=== PATIENT | male | born 1970 | race Caucasian/White ===

== ENCOUNTER 2019-09-14 11:06 | Inpatient (IN) | payer OTHER ==
[2019-09-14 11:38] VITALS: BMI 30.7
--- NOTE | 2019-09-14 12:01 | HP ---
CIWA Score Nausea/Vomitin-Int. Nausea w/Dry Heave Muscle Tremors: 1-None Visible, but [place] Anxiety: 2 Agitation: 1-Slight > Activity Paroxysmal Sweats: 1-Minimal Palms Moist Orientation: 1-Uncertain about Date Tacttile Disturbances: 1-Very Mild Itch/Numbness Auditory Disturbances: 0-None Visual Disturbances: 0-None Headache: 1-Very Mild CIWA-Ar Total Score: 12 - Admission Criteria OASAS Guidelines: Admission for Medically Managed Detox: Requires at least one of the followin. CIWA greater than 12 2. Seizures within the past 24 hours 3. Delirium tremens within the past 24 hours 4. Hallucinations within the past 24 hours 5. Acute intervention needed for co occurring medical disorder 6. Acute intervention needed for co occurring psychiatric disorder 7. Severe withdrawal that cannot be handled at a lower level of care (continued vomiting, continued diarrhea, abnormal vital signs) requiring intravenous medication and/or fluids 8. Admitting History and Physical - Admission Chief Complaint: "I have to stop drinking." History of Present Illness: 49 year old male with history with alcohol dependence and withdrawals. He has attempted detox in the past [facility] 2 weeks ago. However, he went to back to work and then relapsed again right after discharge. He is drinking 2 pints of vodka daily, last drank this morning. He denies any other substances of abuse. He does not smoke ciggarettes. 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 History of Recent Travel: No Admission ROS BHS - HPI Allergies/Adverse Reactions: Allergies Allergy/AdvReac Type Severity Reaction Status Date / Time No Known Allergies Allergy Verified 09/14/19 11:33 Exam Limitations: No Limitations - Ebola screening Have you traveled outside of the country in the last 21 days: No Have you had contact with anyone from an Ebola affected area: No Have you been sick,other than usual withdrawal symptoms: No Do you have a fever: No - Review of Systems Constitutional: Chills, Diaphoresis EENT: reports: No Symptoms Reported Respiratory: reports: No Symptoms reported Cardiac: reports: No Symptoms Reported GI: reports: Nausea, Vomiting, Abdominal cramping : reports: No Symptoms Reported Musculoskeletal: reports: No Symptoms Reported Integumentary: reports: No Symptoms Reported Neuro: reports: No Symptoms reported Endocrine: reports: No Symptoms Reported Hematology: reports: No Symptoms Reported Psychiatric: reports: Judgement Intact, Mood/Affect Appropiate, Orientated x3 Other Systems: Reviewed and Negative Patient History - Patient Medical History Hx Anemia: No Hx Asthma: No Hx Chronic Obstructive Pulmonary Disease (COPD): No Hx Cancer: No Hx Cardiac Disorders: No Hx Congestive Heart Failure: No Hx Hypertension: No Hx Hypercholesterolemia: No Hx Pacemaker: No HX Cerebrovascular Accident: No Hx Seizures: No Hx Dementia: No Hx Diabetes: No Hx Gastrointestinal Disorders: No Hx Liver Disease: No Hx Genitourinary Disorders: No Hx Sexually Transmitted Disorders: No Hx Renal Disease (ESRD): No Hx Thyroid Disease: No Hx Human Immunodeficiency Virus (HIV): No Hx Hepatitis C: No Hx Depression: No Hx Suicide Attempt: No Hx Bipolar Disorder: No Hx Schizophrenia: No - Patient Surgical History Past Surgical History: No - PPD History Previous Implant?: Yes Documented Results: Negative w/o proof Implanted On Prior R Admission?: No Date: 08/26/19 Results: negative PPD to be Administered?: Yes - Smoking Cessation Smoking history: Never smoked Have you smoked in the past 12 months: No Hx Chewing Tobacco Use: No Initiated information on smoking cessation: No - Substances abused Alcohol Substance route: Oral Frequency: Daily Amount used: 2 PINTS OF VODKA Age of first use: 16 Date of last use: 09/14/19 Admission Physical Exam BHS - Vital Signs Vital Signs: Vital Signs - 24 hr 09/14/19 11:29 Temperature 97.9 F Pulse Rate 96 H Respiratory 17 Rate Blood Pressure 141/88 - Physical General Appearance: Yes: Nourished, Moderate Distress, Irritable, Sweating, Anxious HEENTM: Yes: EOMI, Hearing grossly Normal, Normal ENT Inspection, Normocephalic , Normal Voice, ИРИНА, Pharynx Normal, Tm's normal Respiratory: Yes: Chest Non-Tender, Lungs Clear, Normal Breath Sounds Neck: Yes: No masses,lesions,Nodules, Supple, Trachea in good position Breast: Yes: Within Normal Limits Cardiology: Yes: Regular Rhythm, Regular Rate, S1, S2 Abdominal: Yes: Guarding, Tenderness, Other Genitourinary: Yes: Within Normal Limits Back: Yes: Normal Inspection Musculoskeletal: Yes: full range of Motion, Gait Steady, Pelvis Stable Extremities: Yes: Normal Capillary Refill, Normal Inspection Neurological: Yes: river guide II-XII NML intact, Fully Oriented, Alert, Motor Strength 5/5, Normal Mood/Affect, Normal Response Integumentary: Yes: Normal Color, Warm Lymphatic: Yes: Within Normal Limits - Diagnostic (1) Pancreatitis, alcoholic, acute Current Visit: Yes Status: Acute Screened but not Admitted - Documentation of Visit Screened but not Admitted: No Breathalyzer - Breathalyzer Breathalyzer: 0.041 Inpatient Rehab Admission - Rehab Decision to Admit Inpatient rehab admission?: No
[2019-09-14] MEDS ORDERED: DICYCLOMINE HCL 10 MG CAPSULE PO PRN (23:28)
[2019-09-14] MEDS ORDERED: MAG HYDROX/AL HYDROX/SIMETH 30 ML UNIT-DOSE CUP PO PRN (23:28)
[2019-09-14] MEDS ORDERED: IBUPROFEN 400 MG TABLET (FP) PO PRN (23:28)
[2019-09-14] MEDS ORDERED: MELATONIN 5 MG TABLETS PO PRN (23:28)
[2019-09-14] MEDS ORDERED: MAGNESIUM HYDROX 2400MG/30ML ORAL SUSPENSION 30 ML CUP PO PRN (23:28)
[2019-09-14] MEDS ORDERED: MAGNESIUM CITRATE 300 ML BOTTLE PO PRN (23:28)
[2019-09-14] MEDS ORDERED: hydrOXYzine PAMOATE 25 MG CAPSULE (FP) PO PRN (23:28)
[2019-09-14] MEDS ORDERED: P-EPHED 60MG/TRIPROLIDI 2.5MG TABLET PO PRN (23:28)
[2019-09-14] MEDS ORDERED: guaiFENesin 200 MG/10 ML 10 ML UNIT-DOSE CUPS PO PRN (23:28)
[2019-09-14] MEDS ORDERED: ONDANSETRON *ODT* 4 MG TABLET SL PRN (23:28)
[2019-09-14] MEDS ORDERED: ACETAMINOPHEN 325 MG TABLET (FP) PO PRN ×2 (23:28)
[2019-09-14] MEDS ORDERED: MENTHOL/PHENOL 1 EACH UD MM PRN (23:28)
[2019-09-14] MEDS ORDERED: METHOCARBAMOL 500 MG TABLET PO PRN (23:28)
[2019-09-14] MEDS ORDERED: LORazepam 1 MG TABLET PO PRN (23:28)
--- NOTE | 2019-09-14 23:28 | PN ---
[facility] CIWA - CIWA Score Nausea/Vomitin Muscle Tremors: 1-None Visible, but [place] Anxiety: 1-Mildly Anxious Agitation: 1-Slight > Activity Paroxysmal Sweats: 3 Orientation: 1-Uncertain about Date Tacttile Disturbances: 0-None Auditory Disturbances: 0-None Visual Disturbances: 0-None Headache: 0-None Present CIWA-Ar Total Score: 10 [facility] Progress Note (SOAP) Subjective: HERE FOR ALCOHOL DETOX. RETURNS FROM FROM [facility] AFTER BEING MEDICALLY CLEARED FRO ABD PAIN. C/O WITHDRAWAL SX'S. DENIES C.P., SOB, DIZZINESS Objective: 09/14/19 23:25 A/O X2 CONFUSED ABOUT DATE VS 151/91 [id number] [id number] [facility] NOTE-Medical Decision Making - Medical Decision Making 09/14/19 14:51 Ivan Sen is a 49yo man with a PMH of alcohol abuse who was sent from detox for evaluation of abdominal pain. Mr Sen reports that he has had lower abdominal pain with frequent watery diarrhea "as long as he can remember. " He is unable to clarify how long the diarrhea and pain have been present though does say that it occurs every time he drinks. He says that the stool is brown, non-bloody, and watery. He is unsure how many episodes per day but probably up to 10. He denies any nausea or vomiting along with the pain. He denies dysuria, hematuria, fever/chills, PO intolerance, or other recent symptoms. - LLQ TTP on exam. No CVA tenderness. Most likely colitis v diverticulitis - CBC, CMP, mag, UA, UCx, CT abd/pelvis w/ contrast for evaluation. CXR, EKG for possible admission 09/14/19 18:46 - Labs without concerning abnormalities - CT not yet completed. Pt taken to CT 09/14/19 19:55 - CT completed, reviewed in ED. No significant abnormalities appreciated. Read pending - Pt observed walking in ED without difficulty or apparent discomfort. Has been sleeping comfortably in ED 09/14/19 20:23 - CT abd/pelvis negative - Given negative workup, pt well appearing, will d/c back to detox Discharge - Discharge Information Problems reviewed: Yes Clinical Impression/Diagnosis: Abdominal pain in male Condition: Stable Disposition: HOME - Admission No - Follow up/Referral - Patient Discharge Instructions Patient Printed Discharge Instructions: DI for Abdominal Pain-Adult Additional Instructions: Discharge Instructions: You were seen in the emergency department for abdominal pain and diarrhea. Your blood tests and CT scan were all negative. Please continue to take all of your regular medications as prescribed. Seek immediate medical attention for any worsening symptoms, severe pain, inability to eat, dehydration, or any other medical emergency. - Post Discharge Activity 09/14/19 23:32 Assessment: 09/14/19 23:27 [id number] Plan: ADMIT TO DETOX START [facility]
[2019-09-15] MEDS: LORazepam 2 MG TABLET PO SCH ×5 (01:20→22:18)
[2019-09-15] MEDS: PRENATAL VITAMINS W/ FOLIC ACID TABLET (FP) PO SCH (10:10)
--- NOTE | 2019-09-15 10:48 | PN ---
S CIWA - CIWA Score Nausea/Vomitin-No Nausea/No Vomiting Muscle Tremors: 3 Anxiety: 3 Agitation: 2 Paroxysmal Sweats: 2 Orientation: 0-Oriented Tacttile Disturbances: 1-Very Mild Itch/Numbness Auditory Disturbances: 0-None Visual Disturbances: 0-None Headache: 2-Mild CIWA-Ar Total Score: 13 [facility] Progress Note (SOAP) Subjective: 49 years old male admitted on 09/14/19 for alcohol withdrawal sx management treated with ativan detox regimen patient had severe abdominal pain transferred to ER for diarrhea and abdominal pain medically cleared return to chemical dependent facility continue alcohol detox patient ate breakfast resting on bed feeling tired moist oral mucosa good skin turgur strong recommend the patient increase oral fluid discontinue citric and MOM Objective: 09/15/19 10:53 Vital Signs Temperature 97.4 F L 09/15/19 09:50 Pulse Rate 106 H 09/15/19 09:50 Respiratory Rate 18 09/15/19 09:50 Blood Pressure 118/77 09/15/19 09:50 O2 Sat by Pulse Oximetry (%) 09/15/19 10:54 lab see 09/14/19 ER report Assessment: 09/15/19 10:54 alcohol withdrawal Plan: ativan regimen
[2019-09-15] MEDS: FAMOTIDINE 20 MG TABLET PO SCH ×2 (12:14→22:19)
[2019-09-15 15:50] LABS: EPI CELLS 0.8 /HPF (0-5/HPF); HYALINE CASTS 2 /lpf (0-8); PH,URINE 6.5 (5.0-8.0); URINE APPEARANCE CLEAR; URINE BACTERIA 6.5 /hpf (NEGATIVE); URINE BILIRUBIN NEGATIVE (NEGATIVE); URINE COLOR YELLOW; URINE GLUCOSE (UA) NEGATIVE (NEGATIVE); URINE KETONE NEGATIVE (NEGATIVE); URINE LEUK ESTERASE NEGATIVE (NEGATIVE); URINE NITRITE NEGATIVE (NEGATIVE); URINE PROTEIN 1+ (NEGATIVE); URINE RBC 2 /hpf (0-4); URINE UROBILINOGEN 0.2 mg/dL (0.2-1.0); URINE WBC 0 /hpf (0-5)
[2019-09-15] MEDS: THIAMINE HCL 100 MG TABLET (FP) PO SCH (22:19)
[2019-09-16] MEDS: LORazepam 1 MG TABLET PO SCH ×4 (05:34→22:34)
[2019-09-16] MEDS: PRENATAL VITAMINS W/ FOLIC ACID TABLET (FP) PO SCH (10:06)
[2019-09-16] MEDS: FAMOTIDINE 20 MG TABLET PO SCH ×2 (10:06→22:33)
[2019-09-16] MEDS: BISMUTH SUBSALICYLATE 524 MG/30 ML UD PO PRN ×2 (10:08→17:42)
--- NOTE | 2019-09-16 11:53 | PN ---
[facility] CIWA - CIWA Score Nausea/Vomitin-Mild Nausea/No Vomiting Muscle Tremors: 3 Anxiety: 3 Agitation: 1-Slight > Activity Paroxysmal Sweats: 2 Orientation: 0-Oriented Tacttile Disturbances: 0-None Auditory Disturbances: 0-None Visual Disturbances: 0-None Headache: 0-None Present CIWA-Ar Total Score: 10 S Progress Note (SOAP) Subjective: 49 years old male admitted on 09/14/19 for alcohol withdrawal sx management treated with ativan detox regimen ate breakfast and lunch tolerated food and fluid well feeling ok today resting on bed at this time but will attend meetings and groups Objective: 09/16/19 11:54 Vital Signs Temperature 97.5 F L 09/16/19 09:15 Pulse Rate 72 09/16/19 09:15 Respiratory Rate 18 09/16/19 09:15 Blood Pressure 108/62 09/16/19 09:15 O2 Sat by Pulse Oximetry (%) Laboratory Last Values Urine Color Yellow 09/15/19 13:30 Urine Appearance Clear 09/15/19 13:30 Urine pH 6.5 (5.0-8.0) 09/15/19 13:30 Ur Specific [place] 1.038 (1.010-1.035) H 09/15/19 13:30 Urine Protein 1+ (NEGATIVE) H 09/15/19 13:30 Urine Glucose (UA) Negative (NEGATIVE) 09/15/19 13:30 Urine Ketones Negative (NEGATIVE) 09/15/19 13:30 Urine Blood Negative (NEGATIVE) 09/15/19 13:30 Urine Nitrite Negative (NEGATIVE) 09/15/19 13:30 Urine Bilirubin Negative (NEGATIVE) 09/15/19 13:30 Urine Urobilinogen 0.2 mg/dL (0.2-1.0) 09/15/19 13:30 Ur Leukocyte Esterase Negative (NEGATIVE) 09/15/19 13:30 Urine WBC (Auto) 0 /hpf (0-5) 09/15/19 13:30 Urine RBC (Auto) 2 /hpf (0-4) 09/15/19 13:30 Urine Casts (Auto) 2 /lpf (0-8) 09/15/19 13:30 U Epithel Cells (Auto) 0.8 /HPF (0-5/HPF) 09/15/19 13:30 Urine Bacteria (Auto) 6.5 /hpf (NEGATIVE) 09/15/19 13:30 RPR Titer Nonreactive (NONREACTIVE) 09/15/19 06:15 lab noted Assessment: 09/16/19 11:55 alcohol withdrawal Plan: ativan regimen
[2019-09-16] MEDS: THIAMINE HCL 100 MG TABLET (FP) PO SCH (22:33)
[2019-09-17] MEDS ORDERED: LORazepam 0.5 MG TABLET PO PRN
[2019-09-17] MEDS: LORazepam 0.5 MG TABLET PO SCH ×4 (05:45→22:29)
[2019-09-17] MEDS ORDERED: LOPERAMIDE HCL 2 MG CAPSULE PO ONE ×3 (09:13→16:00)
[2019-09-17] MEDS: PRENATAL VITAMINS W/ FOLIC ACID TABLET (FP) PO SCH (10:04)
[2019-09-17] MEDS: FAMOTIDINE 20 MG TABLET PO SCH ×2 (10:04→22:28)
--- NOTE | 2019-09-17 10:48 | PN ---
S CIWA - CIWA Score Nausea/Vomitin-No Nausea/No Vomiting Muscle Tremors: 2 Anxiety: 2 Agitation: 1-Slight > Activity Paroxysmal Sweats: 1-Minimal Palms Moist Orientation: 0-Oriented Tacttile Disturbances: 0-None Auditory Disturbances: 0-None Visual Disturbances: 0-None Headache: 0-None Present CIWA-Ar Total Score: 6 [facility] Progress Note (SOAP) Subjective: 49 years old male admitted on 09/16/19 for alcohol withdrawal sx management treating with ativan detox regimen c/o loose stool no vomiting no bleed noted imodium 4 mg po x 1 now and 4mg po x 1 round 6pm today lomitile prn at 2200 if needed Objective: 09/17/19 10:50 Vital Signs Temperature 97.1 F L 09/17/19 09:42 Pulse Rate 76 09/17/19 09:42 Respiratory Rate 18 09/17/19 09:42 Blood Pressure 144/90 09/17/19 09:42 O2 Sat by Pulse Oximetry (%) Laboratory Last Values Urine Color Yellow 09/15/19 13:30 Urine Appearance Clear 09/15/19 13:30 Urine pH 6.5 (5.0-8.0) 09/15/19 13:30 Ur Specific [place] 1.038 (1.010-1.035) H 09/15/19 13:30 Urine Protein 1+ (NEGATIVE) H 09/15/19 13:30 Urine Glucose (UA) Negative (NEGATIVE) 09/15/19 13:30 Urine Ketones Negative (NEGATIVE) 09/15/19 13:30 Urine Blood Negative (NEGATIVE) 09/15/19 13:30 Urine Nitrite Negative (NEGATIVE) 09/15/19 13:30 Urine Bilirubin Negative (NEGATIVE) 09/15/19 13:30 Urine Urobilinogen 0.2 mg/dL (0.2-1.0) 09/15/19 13:30 Ur Leukocyte Esterase Negative (NEGATIVE) 09/15/19 13:30 Urine WBC (Auto) 0 /hpf (0-5) 09/15/19 13:30 Urine RBC (Auto) 2 /hpf (0-4) 09/15/19 13:30 Urine Casts (Auto) 2 /lpf (0-8) 09/15/19 13:30 U Epithel Cells (Auto) 0.8 /HPF (0-5/HPF) 09/15/19 13:30 Urine Bacteria (Auto) 6.5 /hpf (NEGATIVE) 09/15/19 13:30 RPR Titer Nonreactive (NONREACTIVE) 09/15/19 06:15 lab noted 09/17/19 10:51 encourage hand washing Assessment: 09/17/19 10:51 alcohol withdrawal Plan: ativan regiment
[2019-09-17] MEDS ORDERED: DIPHENOXYLATE 2.5/ATROPINE.025 1 COMBO TABLET PO PRN (22:00)
[2019-09-17] MEDS: THIAMINE HCL 100 MG TABLET (FP) PO SCH (22:28)
[2019-09-18] MEDS ORDERED: LORazepam 0.5 MG TABLET PO ONE (05:00)
[2019-09-18 09:13] VITALS: BP 138/83; PULSE 95; TEMP 97.6
--- NOTE | 2019-09-18 09:24 | PN ---
[facility] CIWA - CIWA Score Nausea/Vomitin-No Nausea/No Vomiting Muscle Tremors: 1-None Visible, but [place] Anxiety: 1-Mildly Anxious Agitation: 0-Normal Activity Paroxysmal Sweats: No Perspiration Orientation: 0-Oriented Tacttile Disturbances: 0-None Auditory Disturbances: 0-None Visual Disturbances: 0-None Headache: 0-None Present CIWA-Ar Total Score: 2 [facility] Progress Note (SOAP) Subjective: alert,anxious Objective: 09/18/19 09:23 Vital Signs Temperature 97.6 F 09/18/19 09:12 Pulse Rate 95 H 09/18/19 09:12 Respiratory Rate 18 09/18/19 09:12 Blood Pressure 138/83 09/18/19 09:12 O2 Sat by Pulse Oximetry (%) Assessment: 09/18/19 09:23 detox completed,no withdrawal symptom Plan: discharge today,follow up with after care program as arrangement
--- NOTE | 2019-09-18 09:30 | DS ---
[facility] Detox Discharge Summary Admission Date: 09/14/19 Discharge Date: 09/18/19 - History Present History: Alcohol Dependence Additional Comments: stable for discharge,follow up with after care program as arrangement Pertinent Past History: pancreatitis - Physical Exam Results Vital Signs: Vital Signs Temperature 97.6 F 09/18/19 09:12 Pulse Rate 95 H 09/18/19 09:12 Respiratory Rate 18 09/18/19 09:12 Blood Pressure 138/83 09/18/19 09:12 O2 Sat by Pulse Oximetry (%) Pertinent Admission Physical Exam Findings: withdrawal signs and symptom Laboratory Last Values Urine Color Yellow 09/15/19 13:30 Urine Appearance Clear 09/15/19 13:30 Urine pH 6.5 (5.0-8.0) 09/15/19 13:30 Ur Specific [place] 1.038 (1.010-1.035) H 09/15/19 13:30 Urine Protein 1+ (NEGATIVE) H 09/15/19 13:30 Urine Glucose (UA) Negative (NEGATIVE) 09/15/19 13:30 Urine Ketones Negative (NEGATIVE) 09/15/19 13:30 Urine Blood Negative (NEGATIVE) 09/15/19 13:30 Urine Nitrite Negative (NEGATIVE) 09/15/19 13:30 Urine Bilirubin Negative (NEGATIVE) 09/15/19 13:30 Urine Urobilinogen 0.2 mg/dL (0.2-1.0) 09/15/19 13:30 Ur Leukocyte Esterase Negative (NEGATIVE) 09/15/19 13:30 Urine WBC (Auto) 0 /hpf (0-5) 09/15/19 13:30 Urine RBC (Auto) 2 /hpf (0-4) 09/15/19 13:30 Urine Casts (Auto) 2 /lpf (0-8) 09/15/19 13:30 U Epithel Cells (Auto) 0.8 /HPF (0-5/HPF) 09/15/19 13:30 Urine Bacteria (Auto) 6.5 /hpf (NEGATIVE) 09/15/19 13:30 RPR Titer Nonreactive (NONREACTIVE) 09/15/19 06:15 - Treatment Hospital Course: Detox Protocol Followed, Detoxed Safely, Responded well, Discharged Condition Good - Medication Discharge Medications: Ambulatory Orders NK [No Known Home Medication] 09/14/19 - Diagnosis (1) Alcohol dependence with uncomplicated withdrawal Current Visit: Yes Status: Acute (2) History of pancreatitis Current Visit: Yes Status: Acute - AMA Did Patient Leave Against Medical Advice: No
[2019-09-18] MEDS: PRENATAL VITAMINS W/ FOLIC ACID TABLET (FP) PO SCH (09:40)
[2019-09-18] MEDS: FAMOTIDINE 20 MG TABLET PO SCH (09:40)
== END 2019-09-18 09:35 | disposition home or self-care (01) | DRG 775 ==
LOC: YASAS 11:06 → Y3N 23:29
PROVIDERS: ADMIT Allergy & Immunology; ATTEND Allergy & Immunology
PROC: HZ2ZZZZ Detoxification Services for Substance Abuse Treatment (ICD-10-PCS; principal; 2019-09-14)
DX: F10.230 Alcohol dependence with withdrawal, uncomplicated (principal); R10.9 Unspecified abdominal pain; Z87.19 Personal history of other diseases of the digestive system
CPT/HCPCS: 36415; 81003; 86593; Q0162

== ENCOUNTER 2019-09-14 13:21 | Emergency (ER) | payer OTHER ==
--- NOTE | 2019-09-14 15:00 | PDOC ---
History of Present Illness - General Chief Complaint: Pain Stated Complaint: Pain Time Seen by Provider: 09/14/19 13:39 - History of Present Illness Initial Comments: Ivan Sen is a 49yo man with a PMH of alcohol abuse who was sent from detox for evaluation of abdominal pain. Mr Sen reports that he has had lower abdominal pain with frequent watery diarrhea "as long as he can remember. " He is unable to clarify how long the diarrhea and pain have been present though does say that it occurs every time he drinks. He says that the stool is brown, non-bloody, and watery. He is unsure how many episodes per day but probably up to 10. He denies any nausea or vomiting along with the pain. He denies dysuria, hematuria, fever/chills, PO intolerance, or other recent symptoms. Past History - Past Medical History Allergies/Adverse Reactions: Allergies Allergy/AdvReac Type Severity Reaction Status Date / Time No Known Allergies Allergy Verified 09/14/19 11:33 Home Medications: Ambulatory Orders NK [No Known Home Medication] 09/14/19 Anemia: No Asthma: No Cancer: No Cardiac Disorders: No CVA: No COPD: No CHF: No Dementia: No Diabetes: No GI Disorders: No Disorders: No HTN: No Hypercholesterolemia: No Liver Disease: No Seizures: No Thyroid Disease: No - Psycho Social/Smoking Cessation Hx Smoking History: Never smoked Have you smoked in the past 12 months: No Hx Alcohol Use: Yes (2 pints of vodka daily) Review of Systems - Review of Systems Comments:: General: No fevers, no chills, no weight or appetite change, no malaise HEENT: No changes in vision, no changes in hearing, no congestion, no sore throat CV: No chest pain, no palpitations, no LE edema Pulm: No SOB, no cough, no wheezing GI: No nausea or vomiting, no melena. See HPI : No frequency, no urgency, no dysuria Musc: No back pain, no joint swelling, no recent injury Skin: No rash, no lesions, no erythema Endo: No excessive thirst, no heat/cold intolerance Heme: No unusual bruising or bleeding, no swollen glands Neuro: No syncope, no numbness/tingling, no focal weakness Vasc: No claudication Psych: No recent change in mood, no SI or HI *Physical Exam - Physical Exam General: Comfortable, no acute distress HEENT: Atraumatic, PERRL, EOMI, MMM, voice normal, normal neck ROM Cards: RRR, no murmur appreciated Pulm: Comfortable on room air, clear to auscultation bilaterally Abd: Soft, nondistended. LLQ tenderness w/ palpation. No rebound, no rigidity, no guarding Ext: Atraumatic. No LE edema. Moves all extremities. WWP Skin: Normal color, no rashes or lesions Neuro: A&Ox3, CN grossly intact, normal speech, motor/sensory grossly intact and symmetric Psych: Mood appropriate to situation ED Treatment Course - LABORATORY CBC & Chemistry Diagram: 09/14/19 16:24 09/14/19 16:24 - RADIOLOGY Radiology Studies Ordered: Category Date Time Status ABDOMEN & PELVIS CT WITH CONTR [CT] Stat CT Scan 09/14/19 14:39 Ordered CHEST PA & LAT [RAD] Stat Radiology 09/14/19 14:39 Ordered Medical Decision Making - Medical Decision Making 09/14/19 14:51 Ivan Sen is a 49yo man with a PMH of alcohol abuse who was sent from detox for evaluation of abdominal pain and frequent diarrhea, up to 10 episodes per day. He denies any nausea/vomiting, dysuria, hematuria, fever/chills, PO intolerance, or other recent symptoms. - LLQ TTP on exam. No CVA tenderness. Most likely colitis v diverticulitis - CBC, CMP, mag, UA, UCx, CT abd/pelvis w/ contrast for evaluation. CXR, EKG for possible admission 09/14/19 18:46 - Labs without concerning abnormalities - CT not yet completed. Pt taken to CT 09/14/19 19:55 - CT completed, reviewed in ED. No significant abnormalities appreciated. Read pending - Pt observed walking in ED without difficulty or apparent discomfort. Has been sleeping comfortably in ED 09/14/19 20:23 - CT abd/pelvis negative - Given negative workup, pt well appearing, will d/c back to detox Discussed with Rosetta Pena and Danis Raymundo PGY2 Discharge - Discharge Information Problems reviewed: Yes Clinical Impression/Diagnosis: Abdominal pain in male Condition: Stable Disposition: HOME - Admission No - Follow up/Referral - Patient Discharge Instructions Patient Printed Discharge Instructions: DI for Abdominal Pain-Adult Additional Instructions: Discharge Instructions: You were seen in the emergency department for abdominal pain and diarrhea. Your blood tests and CT scan were all negative. Please continue to take all of your regular medications as prescribed. Seek immediate medical attention for any worsening symptoms, severe pain, inability to eat, dehydration, or any other medical emergency. - Post Discharge Activity
--- NOTE | 2019-09-14 15:31 | EKG ---
Test Reason : Blood Pressure : / mmHG Vent. Rate : 083 BPM Atrial Rate : 083 BPM P-R Int : 170 ms QRS Dur : 090 ms QT Int : 370 ms P-R-T Axes : 054 022 044 degrees QTc Int : 434 ms NORMAL SINUS RHYTHM NORMAL ECG NO PREVIOUS ECGS AVAILABLE Confirmed by TOMASA RAMOS MD ([id number]) on 09/14/2019 3:31:16 PM Referred By: Confirmed By:TOMASA RAMOS MD
[2019-09-14 15:50] VITALS: BMI 32.1
[2019-09-14 17:00] LABS: BASO % 0.8 % (0-2.0); EOS % 1.5 % (0-4.5); HEMATOCRIT 43.6 % (35.4-49); HEMOGLOBIN 14.9 GM/dL (11.7-16.9); LYMPH % 44.3 % (8-40); MCH 30.5 pg (25.7-33.7); MCHC 34.3 g/dl (32.0-35.9); MEAN PLT VOLUME 6.5 fl (7.5-11.1); MONO % 9.8 % (3.8-10.2); NEUT % 43.6 % (42.8-82.8); PLATELET COUNT 219 K/MM3 (134-434); WHITE BLOOD COUNT 4.2 K/mm3 (4.0-10.0)
[2019-09-14 17:27] LABS: ALBUMIN 3.7 g/dl (3.4-5.0); BILIRUBIN,TOTAL 0.4 mg/dL (0.2-1); BLOOD UREA NITROGEN 16.6 mg/dL (7-18); CALCIUM 8.2 mg/dL (8.5-10.1); CREATININE 0.9 mg/dL (0.55-1.3); POTASSIUM 3.8 mmol/L (3.5-5.1); TOT PROT 7.1 g/dl (6.4-8.2)
[2019-09-14] MEDS ORDERED: chlordiazePOXIDE HCL 25 MG CAPSULE PO ONE (17:50)
[2019-09-14] MEDS ORDERED: chlordiazePOXIDE HCL 10 MG CAPSULE ONE (19:21)
--- NOTE | 2019-09-14 19:41 | PDOC ---
Attending Attestation - Resident Resident Name: Mari Raymundo - ED Attending Attestation I have performed the following: I have examined & evaluated the patient, The case was reviewed & discussed with the resident, I agree w/resident's findings & plan, Exceptions are as noted - HPI HPI: 09/14/19 19:37 49 yo male with h/o etoh abuse, sent from [facility] where admitted for watery diarrhea, and llq pain. states his diarreha is always worse with drinking. no f/c no blood in stool. no vomiting. no h/o known diveritculitis. no mod factors. - Physicial Exam PE: 09/14/19 19:39 awake alert lungs clear bilat heart rrr nomrg abd soft mild llq ttp. no rebound no guarding. no cva tenderness. ext wwp no edema. - Medical Decision Making 09/14/19 19:39 49 yo h/o etoh abuse, here with loose watery stool. differential colitis, diverticulitis, pancreatitis dehydration, withdrawal. pt given librium 50, iv hydration will check cbc cmp lipase. ct a/p signed out to dr Moscoso, pending ct a/p if negative will likely go back to [facility] for detox. Heart Score/ECG Review #1 General ECG Interpretation: Sinus Rhythm, Normal Rate (83), Normal Intervals, No acute ischemic changes
[2019-09-14 22:56] VITALS: BP 136/86; PULSE 94; TEMP 98.6
== END 2019-09-14 23:02 | disposition home or self-care (01) ==
LOC: JER 13:21
DX: R10.30 Lower abdominal pain, unspecified (principal); F10.10 Alcohol abuse, uncomplicated
CPT/HCPCS: 36415; 71046-TC-FY; 74177-TC; 80053; 83690; 83735; 85025; 93005; 93010; 99283-25; Q9967